=== PATIENT | male | born 2000 | race Two or more races ===

== ENCOUNTER 2020-10-30 17:09 | Emergency (ER) | payer OTHER ==
[~2020-10-30] VITALS: Ht 180.3 cm; Wt 119.7 kg
[2020-10-30 17:19] VITALS: BP 148/83
[2020-10-30] MEDS ORDERED: CETI-90 PO (17:29)
--- NOTE | 2020-10-30 17:38 | NUR ---
THE PATIENT BIBS FOR C/O THROAT TIGHTNESS SENSATION SINCE LAST NIGHT WORST TODAY. DENIES SOB. RESPIRATION REGULAR AND UNLABORED. WILL CONTINUE TO MONITOR THE PATIENT.
== END 2020-10-30 17:39 | disposition home or self-care (01) ==
LOC: ER 17:09
DX: T78.1XXA Other adverse food reactions, not elsewhere classified, initial encounter (principal); T36.0X5A Adverse effect of penicillins, initial encounter; J45.909 Unspecified asthma, uncomplicated; X58.XXXA Exposure to other specified factors, initial encounter